=== PATIENT | male | born 1945 | race Caucasian/White ===

== ENCOUNTER → 2020-10-06 | Outpatient (CLI) | payer OTHER ==
[~2020-10-06] MED LIST: AMLO-211 PO; FINA5TAB4 PO; LATA7.5D EACHEYE; MULT-449 PO; TERA10CA3 PO; TIMO1DRO6 EACHEYE; VIT1TABL34 PO
[2020-10-06 11:49] LABS: BASOPHILS % (AUTO) 1 % (0-1); EOSINOPHILS % (AUTO) 3 % (1-7); LYMPHOCYTES % (AUTO) 22 % (22-44); MEAN CORPUSCULAR HEMOGLOBIN 31.4 pg (27.5-34.5); MEAN CORPUSCULAR HGB CONC 33.8 g/dL (33.2-36.2); MEAN PLATELET VOLUME 8.2 fL (7.4-10.4); MONOCYTES % (AUTO) 10 % (2-9); NEUTROPHILS % (AUTO) 64 % (42-75); PLATELET COUNT 251 x10^3/uL (130-400); RED BLOOD COUNT 4.47 x10^6/uL (4.38-5.82); RED CELL DISTRIBUTION WIDTH 13.2 % (9.4-14.8)
[2020-10-06 12:36] LABS: ALANINE AMINOTRANSFERASE 20 U/L (12-78); ALBUMIN 3.7 g/dL (3.4-5.0); ALKALINE PHOSPHATASE 67 U/L (45-117); ANION GAP 6 mmol/L (5-15); BILIRUBIN,TOTAL 0.6 mg/dL (0.2-1.0); CALCIUM 9.3 mg/dL (8.5-10.1); CHLORIDE 108 mmol/L (98-107); CREATININE 1.13 mg/dL (0.7-1.3); TOTAL PROTEIN 6.7 g/dL (6.4-8.2)
== END | disposition home or self-care (01) ==
LOC: STAR 11:00
PROVIDERS: ATTEND Urology
DX: Z01.818 Encounter for other preprocedural examination (principal); C61 Malignant neoplasm of prostate; R00.1 Bradycardia, unspecified
CPT/HCPCS: 36415; 80053; 85025; 93005

== ENCOUNTER 2020-10-12 05:40 | Inpatient (IN) | payer OTHER ==
[~2020-10-12] VITALS: Ht 172.7 cm; Wt 99.6 kg
[2020-10-12] MEDS ORDERED: CHLORHEXIDINE 15 ML UDC PO ONE (06:30)
[2020-10-12] MEDS ORDERED: LACTATED RINGERS 1,000 ML IV SCH (06:30)
[2020-10-12] MEDS ORDERED: EPINEPHRINE 1 MG/ML, 1ML ONE (07:02)
[2020-10-12] MEDS ORDERED: OPIUM/BELLADONNA SUPP.RECT 16.2-30 MG ONE (07:02)
[2020-10-12] MEDS ORDERED: BUPIVACAINE/PF 0.25% ONE (07:02)
[2020-10-12] MEDS ORDERED: MIDAZOLAM 1 MG/ML, 2ML ONE (07:23)
[2020-10-12] MEDS ORDERED: FENTANYL PF 250 MCG/5ML ONE (07:23)
[2020-10-12] MEDS ORDERED: ONDANSETRON 2MG/ML, 2ML ONE (07:31)
[2020-10-12] MEDS ORDERED: DEXAMETHASONE 4 MG/ML, 1ML ONE (07:31)
[2020-10-12] MEDS ORDERED: PROPOFOL 10 MG/ML, 20ML ONE (07:31)
[2020-10-12] MEDS ORDERED: CEFAZOLIN 1,000 MG ONE (07:31)
[2020-10-12] MEDS ORDERED: ROCURONIUM 10 MG/ML,10ML ONE (07:31)
[2020-10-12] MEDS ORDERED: SUCCINYLCHOLINE 20 MG/ML, 10ML ONE (07:31)
[2020-10-12] MEDS ORDERED: HYDROmorphone 1 MG/ML, 1ML INJ IV PRN (11:00)
[2020-10-12] MEDS ORDERED: OXYcodone 5 MG/5 ML ORAL.SOL UDC PO PRN (11:00)
[2020-10-12] MEDS ORDERED: KETOROLAC 30 MG/1 ML IV PRN (11:00)
[2020-10-12] MEDS ORDERED: ONDANSETRON 2MG/ML, 2ML IVPush PRN (11:00)
[2020-10-12] MEDS ORDERED: DIAZEPAM 5 MG/ML, 2ML IV PRN ×2 (11:00)
[2020-10-12] MEDS ORDERED: LABETALOL 5MG/ML, 20ML IV PRN (11:00)
[2020-10-12] MEDS ORDERED: PROMETHAZINE 25 MG/ML, 1ML IV PRN (11:00)
[2020-10-12] MEDS ORDERED: MEPERIDINE/PF 25MG/0.5ML IVPush PRN (11:00)
[2020-10-12] MEDS ORDERED: FENTANYL PF 100 MCG/2ML IV PRN (11:00)
[2020-10-12] MEDS ORDERED: ALBUTEROL SULFATE 2.5 MG/3 ML NPPB PRN (11:00)
[2020-10-12] MEDS ORDERED: hydrALAzine 20 MG/ML, 1ML IV PRN (11:00)
[2020-10-12] MEDS ORDERED: METOCLOPRAMIDE 5 MG/ML, 2ML IV PRN (11:00)
[2020-10-12] MEDS ORDERED: OXYcodone 5 MG/5 ML ORAL.SOL UDC ONE (13:56)
[2020-10-12] MEDS ORDERED: KETOROLAC 30 MG/1 ML ONE (14:04)
[2020-10-12] MEDS ORDERED: ONDANSETRON 2MG/ML, 2ML IV PRN (16:00)
[2020-10-12] MEDS ORDERED: morphine SULFATE 10 MG/ML, 1ML IV PRN (16:00)
[2020-10-12] MEDS ORDERED: OPIUM/BELLADONNA SUPP.RECT 16.2-60 MG PR PRN (16:00)
[2020-10-12] MEDS ORDERED: ACETAMINOPHEN 500 MG TABLET PO PRN (16:00)
[2020-10-12] MEDS ORDERED: OXYcodone IR 5MG TABLET PO PRN (16:00)
[2020-10-12] MEDS ORDERED: ENOXAPARIN 40 MG/0.4 ML SQ SCH ×2 (19:00→20:04)
[2020-10-12 19:11] VITALS: BP 130/66
[2020-10-12 19:12] VITALS: BP 130/66
[2020-10-12] MEDS: FAMOTIDINE 20 MG/2 ML IVPush SCH (20:54)
[2020-10-12] MEDS: D5%-0.45NACL+KCL 20MEQ 1,000 ML IV SCH (20:55)
[2020-10-13] VITALS: BP 107/61
[2020-10-13 00:01] VITALS: BP 107/61
[2020-10-13 04:00] VITALS: BP 115/64
[2020-10-13] MEDS: D5%-0.45NACL+KCL 20MEQ 1,000 ML IV SCH ×2 (04:05→12:08)
[2020-10-13 05:59] LABS: ANION GAP 5 mmol/L (5-15); CALCIUM 8.1 mg/dL (8.5-10.1); CHLORIDE 111 mmol/L (98-107); CREATININE 1.08 mg/dL (0.7-1.3)
[2020-10-13] MEDS ORDERED: SODIUM CHLORIDE 0.9%, 500ML IVBOLUS ONE (07:00)
[2020-10-13 07:14] VITALS: BP 135/69
[2020-10-13] MEDS ORDERED: ENOXAPARIN 40 MG/0.4 ML SQ SCH (08:00)
[2020-10-13] MEDS: FAMOTIDINE 20 MG/2 ML IVPush SCH (08:24)
[2020-10-13] MEDS ORDERED: TIMOLOL OPHTH 0.5%, 5ML EACHEYE SCH (09:00)
[2020-10-13] MEDS ORDERED: AMLODIPINE 10 MG TAB PO SCH (09:00)
[2020-10-13] MEDS ORDERED: TERAZOSIN 5MG CAPSULE PO SCH (09:00)
[2020-10-13] MEDS ORDERED: OXYC5TAB2 PO (11:47)
[2020-10-13 13:21] VITALS: BP 129/71
== END 2020-10-13 14:05 | disposition home or self-care (01) | DRG 707 ==
LOC: OUT 05:40 → 4NE 14:28 → OUT 22:54
PROVIDERS: ADMIT Urology; ATTEND Urology
PROC: 07BC0ZZ Excision of Pelvis Lymphatic, Open Approach (ICD-10-PCS; 2020-10-12)
PROC: 8E0W0CZ Robotic Assisted Procedure of Trunk Region, Open Approach (ICD-10-PCS; 2020-10-12)
PROC: 0VT Male Reproductive System, Resection (ICD-10-PCS; 2020-10-12)
PROC: 0VT00ZZ Resection of Prostate, Open Approach (ICD-10-PCS; principal; 2020-10-12 07:30)
DX: C61 Malignant neoplasm of prostate (principal); R71.0 Precipitous drop in hematocrit; K66.0 Peritoneal adhesions (postprocedural) (postinfection)
CPT/HCPCS: 36415; 80048; 85014; 85018; 86850; 86900; 88305; 88307; 88309; 88342; C1729; G0378; J0171; J0690; J1100; J1650; J1885; J2250; J2405; J2704; J3010; C1760; J0330; J3480; J7040; J7120